=== PATIENT | female | born 1990 | race American Indian/Alaskan Native ===

== ENCOUNTER 2019-07-04 23:58 | Emergency (ER) | payer SELFPAY ==
[2019-07-05 00:06] VITALS: BP 119/99
--- NOTE | 2019-07-05 01:43 | Emergency Department Report ---
ED Back Pain/Injury HPI - General Chief Complaint: Back Pain/Injury Stated Complaint: BACK AND RIB PAIN Time Seen by Provider: 07/05/19 01:39 Source: patient Limitations: No Limitations - History of Present Illness Initial Comments: 28 year old -[place] female presents to the emergency room complaining of entire back and rib pain 1 week patient reports that the pain feels like it's burning. Patient admits nausea but no vomiting denies any trauma no problems urinating dysuria. She reports that she suffers from chronic back pain but this does not feel the same. Patient reports that she took ibuprofen couple days ago. Complaint: back pain Onset/Timin -: week(s) Similar Symptoms Previously: No Radiation: none Severity scale (0 -10): 10 Quality: burning Consistency: constant Improves With: none Worsens With: none Associated Symptoms: denies other symptoms - Related Data Previous Rx's Medication Instructions Recorded Last Taken Type Ibuprofen [Motrin 800 MG tab] 800 mg PO Q8HR PRN #30 tablet 07/05/19 Unknown Rx predniSONE [Deltasone] 20 mg PO QDAY #4 tab 07/05/19 Unknown Rx Allergies Allergy/AdvReac Type Severity Reaction Status Date / Time No Known Allergies Allergy Unverified 07/05/19 00:02 ED Review of Systems ROS: Stated complaint: BACK AND RIB PAIN Other details as noted in HPI ED Past Medical Hx - Past Medical History Previous Medical History?: No - Surgical History Past Surgical History?: Yes Additional Surgical History: C-sec X3 - Social History Smoking Status: Never Smoker Substance Use Type: None - Medications Home Medications: Home Medications Medication Instructions Recorded Confirmed Last Taken Type Ibuprofen [Motrin 800 MG tab] 800 mg PO Q8HR PRN #30 tablet 07/05/19 Unknown Rx predniSONE [Deltasone] 20 mg PO QDAY #4 tab 07/05/19 Unknown Rx ED Physical Exam - General Limitations: No Limitations General appearance: alert, in no apparent distress - Head Head exam: Present: atraumatic, normocephalic - Eye Eye exam: Present: normal appearance - ENT ENT exam: Present: mucous membranes moist - Neck Neck exam: Present: normal inspection - Respiratory Respiratory exam: Present: normal lung sounds bilaterally. Absent: respiratory distress, chest wall tenderness ( ) - Cardiovascular Cardiovascular Exam: Present: regular rate, normal rhythm. Absent: systolic murmur, diastolic murmur, rubs, gallop - GI/Abdominal GI/Abdominal exam: Present: soft, normal bowel sounds - Extremities Exam Extremities exam: Present: normal inspection - Back Exam Back exam: Present: normal inspection, full ROM. Absent: tenderness, paraspinal tenderness, vertebral tenderness - Neurological Exam Neurological exam: Present: alert, oriented X3 - Psychiatric Psychiatric exam: Present: normal affect, normal mood - Skin Skin exam: Present: warm, dry, intact, normal color. Absent: rash ED Course Vital Signs 07/05/19 00:03 Temperature 98.5 F Pulse Rate 102 H Respiratory 16 Rate Blood Pressure 119/99 O2 Sat by Pulse 100 Oximetry ED Medical Decision Making - Radiology Data Radiology results: report reviewed Patient: ISABELLE LANTIGUA MR#: [id number] : 1990 Acct:[id number] Age/Sex: 28 / F ADM Date: 07/04/19 Loc: ED Attending Dr: Ordering Physician: JANICE HERRERA Date of Service: 07/05/19 Procedure(s): XR chest routine 2V Accession Number(s): [id number] cc: JANICE HERRERA Fluoro Time In Minutes: CHEST 2 VIEWS INDICATION / CLINICAL INFORMATION: rib and back pain. COMPARISON: None available. FINDINGS: SUPPORT DEVICES: None. HEART / MEDIASTINUM: No significant abnormality. LUNGS / PLEURA: No significant pulmonary or pleural abnormality. No pneumothorax. ADDITIONAL FINDINGS: No significant additional findings. IMPRESSION: 1. No acute findings. Signer Name: Asif Oshea MD Signed: 07/05/2019 3:07 AM Workstation Name: [id number] Transcribed By: TL Dictated By: Asif Oshea MD Electronically Authenticated By: Asif Oshea MD Signed Date/Time: 07/05/19306 DD/ 6 TD/TT: - Medical Decision Making 28 year old -[place] female presents to the emergency room complaining of entire back and rib pain 1 week patient reports that the pain feels like it's burning. Patient admits nausea but no vomiting denies any trauma no problems urinating dysuria. She reports that she suffers from chronic back pain but this does not feel the same. Patient reports that she took ibuprofen couple days ago. Critical care attestation.: If time is entered above; I have spent that time in minutes in the direct care of this critically ill patient, excluding procedure time. ED Disposition Clinical Impression: Back pain Qualifiers: Back pain location: back pain in unspecified location Chronicity: acute Back pain laterality: unspecified Qualified Code(s): M54.9 - Dorsalgia, unspecified Disposition: - TO HOME OR SELFCARE Is pt being admited?: No Does the pt Need Aspirin: No Condition: Stable Instructions: Back Pain (ED) Additional Instructions: X-ray and EKG are all within normal limits. Please take pain medication and steroids as prescribed. Follow up with her primary care provider for further evaluation. Prescriptions: predniSONE [Deltasone] 20 mg PO QDAY #4 tab Ibuprofen [Motrin 800 MG tab] 800 mg PO Q8HR PRN #30 tablet PRN Reason: Pain , Severe (7-10) Referrals: PRIMARY CARE,MD [Primary Care Provider] - 3-5 Days Your,provider [Other] - 3-5 Days
--- NOTE | 2019-07-05 03:12 | XRay Report ---
CHEST 2 VIEWS INDICATION / CLINICAL INFORMATION: rib and back pain. COMPARISON: None available. FINDINGS: SUPPORT DEVICES: None. HEART / MEDIASTINUM: No significant abnormality. LUNGS / PLEURA: No significant pulmonary or pleural abnormality. No pneumothorax. ADDITIONAL FINDINGS: No significant additional findings. IMPRESSION: 1. No acute findings. Signer Name: Asif Oshea MD Signed: 07/05/2019 3:07 AM Workstation Name: [id number]
== END 2019-07-05 04:31 | disposition home or self-care (01) ==
LOC: ED 23:58
DX: M54.89 Other dorsalgia (principal); R07.81 Pleurodynia
CPT/HCPCS: 71046; 93005; 93010